=== PATIENT | male | born 1965 | race Caucasian/White ===

== ENCOUNTER 2016-09-10 11:41 | Emergency (ER) | payer OTHER ==
[~2016-09-10] VITALS: Ht 190.5 cm; Wt 111.1 kg
[2016-09-10 11:58] VITALS: BP 135/87
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
[2016-09-10] MEDS ORDERED: MULTI-DAY VITA1 EACH PO (15:30)
[2016-09-10] MEDS ORDERED: VITAMIN B-121000 MC3 PO (15:30)
[2016-09-10] MEDS ORDERED: FISH OIL 1,0001 EAC1 PO (15:31)
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
[2016-09-10 16:50] LABS: ABSOLUTE BASOPHIL COUNT 0 /CUMM (0.0-0.2); ABSOLUTE EOSINOPHIL COUNT 0 /CUMM (0.0-0.7); ABSOLUTE GRANULOCYTE CT 4.6 /CUMM (1.4-6.5); ABSOLUTE LYMPH COUNT 1.7 /CUMM (1.2-3.4); ABSOLUTE MONOCYTE COUNT 0.5 /CUMM (0.10-0.60); BASOPHIL % 0.3 % (0.0-2.0); EOSINOPHIL % 0.3 % (0-5); GRANULOCYTE % 67.4 % (42.2-75.2); HEMATOCRIT 47.9 % (42-52); MEAN CORPUSCULAR HGB 30.7 PG (27.0-31.0); MEAN CORPUSCULAR HGB CONC 34.3 G/DL (33.0-37.0); MEAN CORPUSCULAR VOLUME 89.5 FL (80.0-94.0); MEAN PLATELET VOLUME 7.9 FL (7.4-10.4); PLATELET COUNT 148 /CUMM (130-400); RED BLOOD CELL CT 5.36 /CUMM (4.70-6.10); WHITE BLOOD CELL COUNT 6.9 /CUMM (4.8-10.8)
--- NOTE | 2016-09-10 16:52 | CT SCAN REPORT ---
EXAMINATION: CT CHEST, ABDOMEN AND PELVIS WITHOUT CONTRAST. CLINICAL INFORMATION: 51-year-old male patient with chest trauma. Right inferior anterolateral rib pain. Right upper quadrant tenderness. COMPARISON: No pertinent prior studies are available for comparison. TECHNIQUE: Multidetector volumetric imaging was performed from the thoracic inlet through the pubic symphysis without IV contrast. Sagittal, coronal, and MIP axial reformatted images were obtained on the technologist workstation. Note that the evaluation of the solid viscera after trauma is limited by the lack of IV contrast. 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 Lungs are clear. CHEST: LUNG: The lungs show no evidence of contusion. There is no pneumothorax. A 3 mm ovoid nodule is located in the right middle lobe. Series 5, image 322. Another 3 mm pleural-based nodule is located in the anterolateral aspect of the left lower lobe. Series 5, image 377. Another 3 mm nodule is located in the left lower lobe basal segment. Series 5, image 288. MEDIASTINUM: The mediastinum is normal. The central vascular structures are unremarkable. No hilar or mediastinal lymphadenopathy. No hematoma. Coronary artery calcification. Mediastinal lipomatosis, anterior mediastinum. PERICARDIUM/PLEURA: No significant effusion. No pleural mass or thickening. CHEST WALL/AXILLA: Small benign lymph nodes. ABDOMEN/PELVIS: PERITONEAL SPACE:No free air or fluid identified. LIVER, GALLBLADDER, BILIARY TREE: Normal. PANCREAS: Unremarkable. SPLEEN: Unremarkable. ADRENAL GLANDS: Unremarkable. KIDNEYS AND URETERS: The kidneys are normal in size, shape, and attenuation. No hydronephrosis, hydroureter, or calculi seen. No perinephric stranding. BLADDER: Empty. GASTROINTESTINAL TRACT: The small and large bowel are unremarkable. The appendix is unremarkable. A 1 cm ovoid calcified stone is visualized in the mid lower abdomen. Series 2, image 107. This may be a enterolith in the Meckel's diverticulum. There is no sign of inflammation. ABDOMINAL WALL: Small fat-containing left inguinal hernia. LYMPHOVASCULAR STRUCTURES: No lymphadenopathy. The aorta is unremarkable.. PELVIC VISCERA: Unremarkable. OSSEUS STRUCTURES: There is a minimally displaced fracture involving the lateral aspect of the right seventh rib and a hairline fracture involving the lateral aspect of the right eighth rib. SPINE: Normal anatomic alignment. No vertebral fracture. Disc disease at L5-S1. 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 IMPRESSION: 1. Fractures involving the lateral aspects of the right seventh and eighth ribs. 2. No pneumothorax or lung contusion. 3. Several 3 mm pulmonary nodules. 4. Enterolith lower midline of the abdomen as discussed. Various management parameters for solitary pulmonary nodules are in the literature. According to the Fleischner Society, recommendations for solid pulmonary nodules are as follows: Nodule size < or = to 4 mm in LOW RISK PATIENTS: No follow up needed. Nodule size < or = to 4 mm in HIGH RISK PATIENTS: Follow up CT at 12 months; if unchanged, no further follow up.
[2016-09-10] MEDS ORDERED: IBUPROFEN600 M1 PO (17:15)
[2016-09-10] MEDS ORDERED: PERCOCET 5-3251 EACH PO (17:15)
== END 2016-09-10 17:00 ==
LOC: ERH 11:41
PROVIDERS: Emergency Medicine
DX: S22.41XA Multiple fractures of ribs, right side, initial encounter for closed fracture (principal); R10.11 Right upper quadrant pain; W19.XXXA Unspecified fall, initial encounter; Y93.72 Activity, wrestling; Y92.9 Unspecified place or not applicable
CPT/HCPCS: 74176